=== PATIENT | male | born 1990 | race Caucasian/White ===

== ENCOUNTER 2024-02-22 20:24 | Emergency (ER) | payer MEDICAID ==
[~2024-02-22] VITALS: Ht 162.6 cm; Wt 81.6 kg
[2024-02-22 20:53] VITALS: BP_SYST 146; PULSE 99; RESP 20; TEMP 98.9; O2SAT 99
[2024-02-22] MEDS ORDERED: HYDR-3917 PO (21:58)
[2024-02-22] MEDS ORDERED: IBUP-1971 PO (21:59)
[2024-02-22] MEDS: MORPHINE 4 MG INJ. 4 MG/ML VIAL IM ONE ×2 (22:00→22:36)
[2024-02-22 23:30] VITALS: BP_SYST 146; PULSE 99; RESP 20; TEMP 98.9; O2SAT 99
== END 2024-02-22 23:30 | disposition home or self-care (01) ==
LOC: SED 20:24
DX: S82.392A Other fracture of lower end of left tibia, initial encounter for closed fracture (principal); X58.XXXA Exposure to other specified factors, initial encounter; Y93.44 Activity, trampolining; Y92.89 Other specified places as the place of occurrence of the external cause; Y99.8 Other external cause status
CPT/HCPCS: 99284; 29515; 73600; 96372; J2270